=== PATIENT | female | born 2000 | race Caucasian/White ===

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

== ENCOUNTER → 2019-09-08 | Outpatient (CLI) | payer OTHER | END | disposition home or self-care (01) | LOC: US 16:49 | DX: N92.6 Irregular menstruation, unspecified (principal) ==

== ENCOUNTER → 2019-12-10 | Outpatient (CLI) | payer OTHER | END | disposition home or self-care (01) | LOC: RAD 10:13 | PROVIDERS: ATTEND Emergency Medicine | DX: M25.531 Pain in right wrist (principal) ==

== ENCOUNTER → 2021-01-20 | Outpatient (CLI) | payer OTHER ==
[2021-01-20 08:58] LABS: B-hCG (QUALITATIVE) NEGATIVE (NEGATIVE)
[2021-01-21 05:06] LABS: FOLLICLE STIMULATING HORMONE 10.2 mIU/mL (.); PROLACTIN 15.3 ng/mL (4.8-23.3)
[2021-01-22 06:07] LABS: TESTOSTERONE FREE, (DIRECT) 6.7 pg/mL (0.0-4.2)
== END | disposition home or self-care (01) ==
LOC: LAB 07:30
PROVIDERS: ATTEND Nurse Practitioner Women's Health
DX: N91.1 Secondary amenorrhea (principal); R53.83 Other fatigue; Z87.42 Personal history of other diseases of the female genital tract

== ENCOUNTER 2021-12-12 08:44 | Emergency (ER) | payer OTHER ==
[~2021-12-12] VITALS: Ht 170.1 cm; Wt 110.7 kg
== END 2021-12-12 14:33 | disposition home or self-care (01) ==
LOC: ED 08:44
DX: S20.211A Contusion of right front wall of thorax, initial encounter (principal); M79.89 Other specified soft tissue disorders; Z79.899 Other long term (current) drug therapy; Y08.89XA Assault by other specified means, initial encounter; Y93.89 Activity, other specified; Y92.89 Other specified places as the place of occurrence of the external cause; Y99.8 Other external cause status

== ENCOUNTER 2022-06-22 21:20 | Emergency (ER) | payer OTHER ==
[~2022-06-22] VITALS: Ht 170.1 cm; Wt 113.4 kg
[2022-06-22] MEDS ORDERED: GLUMETZA500 MG PO (21:32)
[2022-06-22 22:00] LABS: BASO # 0.1 10*3/uL (0.0-0.1); BASO % 0.4 % (0.0-1.0); EOS # 0.1 10*3/uL (0.0-0.4); EOS % 1.1 % (1.0-4.0); HEMATOCRIT 41.9 % (37.0-47.0); LYMPH # 3.1 10*3/uL (1.3-4.4); MEAN CELL VOLUME 79.4 fl (81.0-99.0); MEAN CORPUSCULAR HGB 26.1 pg (27.0-31.0); MEAN CORPUSCULAR HGB CONC 32.9 g/dl (33.0-37.0); MEAN PLATELET VOLUME 9.2 fl (9.6-12.3); MONO # 0.6 10*3/uL (0.1-1.0); MONO % 4.9 % (3.0-9.0); NEUT # 7.5 10*3/uL (2.3-7.9); NEUT % 66.2 % (47.0-73.0); PLATELET COUNT AUTOMATED 337 10*3/uL (130-400); RED BLOOD COUNT 5.28 10*6/uL (4.10-5.10); RED CELL DISTRI WIDTH 13.7 % (0-14.5); WHITE BLOOD COUNT 11.3 10*3/uL (4.8-10.8)
[2022-06-22 22:21] LABS: ALKALINE PHOSPHATASE 66 U/L (46-116); BUN 15 mg/dl (9-23); CHLORIDE 108 mmol/L (98-107); LIPASE 40 U/L (12-53); POTASSIUM 3.7 mmol/L (3.4-5.1); SGPT/ALT 54 U/L (10-49); TOTAL PROTEIN 7.7 gm/dL (6.0-8.0)
[2022-06-22] MEDS ORDERED: METRONIDAZOLE500 M1 PO (23:01)
[2022-06-22] MEDS ORDERED: CIPRO500 MG PO (23:01)
== END 2022-06-22 23:09 | disposition home or self-care (01) ==
LOC: ED 21:20
PROVIDERS: Internal Medicine
DX: K82.8 Other specified diseases of gallbladder (principal); K80.20 Calculus of gallbladder without cholecystitis without obstruction; R79.89 Other specified abnormal findings of blood chemistry; D50.9 Iron deficiency anemia, unspecified; J45.909 Unspecified asthma, uncomplicated; F41.9 Anxiety disorder, unspecified; R11.0 Nausea

== ENCOUNTER 2022-09-01 17:44 | Emergency (ER) | payer OTHER ==
[~2022-09-01] VITALS: Ht 170.1 cm; Wt 117.0 kg
[~2022-09-01 17:44] MED LIST changes: +CIPRO500 MG PO; +GLUMETZA500 MG PO; +METRONIDAZOLE500 M1 PO
[2022-09-01 18:33] LABS: BILIRUBIN Negative (Negative); BLOOD Negative (Negative); CLARITY Cloudy (Clear); COLOR Yellow (Yellow); GLUCOSE Negative (Negative); KETONE Trace (Negative); LEUKO ESTERASE Negative (Negative); NITRITE Negative (Negative); PH 5.5 (4.5-8.0)
[2022-09-01 18:41] LABS: BACTERIA TRACE; RBC 0-2 rbc/hpf (0-2); WBC 0-2 wbc/hpf (0-5)
[2022-09-01 18:57] LABS: BASO % 0.3 % (0.0-1.0); EOS # 0.1 10*3/uL (0.0-0.4); EOS % 0.6 % (1.0-4.0); HEMATOCRIT 41.5 % (37.0-47.0); LYMPH # 2.3 10*3/uL (1.3-4.4); MEAN CORPUSCULAR HGB 25.3 pg (27.0-31.0); MEAN PLATELET VOLUME 9.2 fl (9.6-12.3); MONO # 0.6 10*3/uL (0.1-1.0); MONO % 5.9 % (3.0-9.0); NEUT # 7.5 10*3/uL (2.3-7.9); NEUT % 70.9 % (47.0-73.0); PLATELET COUNT AUTOMATED 329 10*3/uL (130-400); RED BLOOD COUNT 5.25 10*6/uL (4.10-5.10); RED CELL DISTRI WIDTH 13.6 % (0-14.5); WHITE BLOOD COUNT 10.6 10*3/uL (4.8-10.8)
[2022-09-01 19:19] LABS: ALKALINE PHOSPHATASE 77 U/L (46-116); BUN 15 mg/dl (9-23); CHLORIDE 107 mmol/L (98-107); LIPASE 37 U/L (12-53); POTASSIUM 3.7 mmol/L (3.4-5.1); SGPT/ALT 84 U/L (10-49); TOTAL PROTEIN 7.6 gm/dL (6.0-8.0)
[2022-09-01] MEDS ORDERED: HYDROCODONE-AC1 EAC1 PO (20:23)
== END 2022-09-01 20:33 | disposition home or self-care (01) ==
LOC: ED 17:44
PROVIDERS: Nurse Practitioner Family
DX: K82.9 Disease of gallbladder, unspecified (principal); Z79.2 Long term (current) use of antibiotics; Z79.899 Other long term (current) drug therapy

== ENCOUNTER → 2023-06-01 | Outpatient (CLI) | payer OTHER ==
[~2023-06-01] MED LIST changes: +HYDROCODONE-AC1 EAC1 PO
[2023-06-01 09:47] LABS: BASO % 0.3 % (0.0-1.0); EOS # 0.1 10*3/uL (0.0-0.4); EOS % 0.6 % (1.0-4.0); HEMATOCRIT 43.1 % (37.0-47.0); LYMPH # 2.1 10*3/uL (1.3-4.4); MEAN CELL VOLUME 75.6 fl (81.0-99.0); MEAN CORPUSCULAR HGB 23.7 pg (27.0-31.0); MEAN CORPUSCULAR HGB CONC 31.3 g/dl (33.0-37.0); MONO # 0.5 10*3/uL (0.1-1.0); MONO % 5.9 % (3.0-9.0); NEUT # 5.2 10*3/uL (2.3-7.9); NEUT % 65.9 % (47.0-73.0); PLATELET COUNT AUTOMATED 351 10*3/uL (130-400); RED CELL DISTRI WIDTH 14.2 % (0-14.5); WHITE BLOOD COUNT 7.9 10*3/uL (4.8-10.8)
[2023-06-01 10:26] LABS: ALKALINE PHOSPHATASE 62 U/L (46-116); BUN 10 mg/dl (9-23); CHLORIDE 107 mmol/L (98-107); CHOLESTEROL 129 mg/dL (<200); LDL CHOLESTEROL 77 mg/dL (9-159); POTASSIUM 3.4 mmol/L (3.4-5.1); SGPT/ALT 78 U/L (5-49); TRIGLYCERIDES 79 mg/dl (<150)
== END | disposition home or self-care (01) ==
LOC: LAB 09:12
PROVIDERS: ATTEND Nurse Practitioner Family
DX: Z11.4 Encounter for screening for human immunodeficiency virus [HIV] (principal); Z13.1 Encounter for screening for diabetes mellitus; E66.9 Obesity, unspecified; Z13.220 Encounter for screening for lipoid disorders; Z68.41 Body mass index [BMI] 40.0-44.9, adult

== ENCOUNTER → 2024-03-17 | Outpatient (CLI) | payer OTHER | END | disposition home or self-care (01) | LOC: US 12:00 | PROVIDERS: ATTEND Nurse Practitioner Women's Health | DX: N91.2 Amenorrhea, unspecified (principal) ==

== ENCOUNTER → 2024-05-21 | Outpatient (CLI) | payer OTHER | END | disposition home or self-care (01) | LOC: LAB 10:03 | PROVIDERS: ATTEND Technician/Technologist Optician | DX: E66.813 Obesity, class 3 (principal); Z68.41 Body mass index [BMI] 40.0-44.9, adult ==

== ENCOUNTER → 2024-11-01 | Outpatient (CLI) | payer OTHER | END | disposition home or self-care (01) | LOC: US 10-14 15:42 | PROVIDERS: ATTEND Nurse Practitioner Family | DX: M67.432 Ganglion, left wrist (principal) ==